=== PATIENT | female | born 1985 | race Two or more races ===

== ENCOUNTER 2023-09-27 09:42 | Outpatient (CLI) | payer OTHER | END 2023-09-27 09:43 | disposition home or self-care (01) | LOC: PRENATAL 09:42 | PROVIDERS: ATTEND Obstetrics & Gynecology Maternal & Fetal Medicine | DX: O36.80X0 Pregnancy with inconclusive fetal viability, not applicable or unspecified (principal); Z36.82 Encounter for antenatal screening for nuchal translucency; Z36.9 Encounter for antenatal screening, unspecified; O09.519 Supervision of elderly primigravida, unspecified trimester; Z3A.11 11 weeks gestation of pregnancy ==

== ENCOUNTER 2023-10-12 10:35 | Outpatient (CLI) | payer OTHER | END 2023-10-12 10:36 | disposition home or self-care (01) | LOC: PRENATAL 10:35 | PROVIDERS: ATTEND Obstetrics & Gynecology Maternal & Fetal Medicine | DX: Z76.1 Encounter for health supervision and care of foundling (principal) ==

== ENCOUNTER 2024-02-27 10:50 | Outpatient (CLI) | payer OTHER | END 2024-02-27 10:51 | disposition home or self-care (01) | LOC: PRENATAL 10:50 | PROVIDERS: ATTEND Obstetrics & Gynecology Maternal & Fetal Medicine | DX: O26.843 Uterine size-date discrepancy, third trimester (principal); O36.8130 Decreased fetal movements, third trimester, not applicable or unspecified; O09.513 Supervision of elderly primigravida, third trimester; Z3A.33 33 weeks gestation of pregnancy ==

== ENCOUNTER 2024-04-03 11:41 | Inpatient (IN) | payer OTHER ==
[~2024-04-03] VITALS: Ht 162.6 cm; Wt 88.0 kg
[2024-04-03 12:38] LABS: HEMATOCRIT 39.8 % (36.0-45.00); HEMOGLOBIN 13.8 g/dL (12.0-15.00); MEAN CELL VOLUME 93.1 fL (80.00-100.00); MEAN CORPUSCULAR HEMOGLOBIN 32.4 pg (27.00-32.0); MEAN CORPUSCULAR HGB CONC 34.8 g/dl (32.0-36.0); PLATELET COUNT 216 K/uL (150-450); RED BLOOD COUNT 4.27 M/uL (4.00-6.00); RED CELL DISTRIBUTION WIDTH 14.5 % (11.5-14.5)
[2024-04-03 12:57] LABS: INR < 0.93; PARTIAL THROMBOPLASTIN TIME 25.1 SECONDS (22.0-34.0); PROTHROMBIN TIME 10.1 SECONDS (9.0-11.5)
[2024-04-03 13:19] LABS: ALBUMIN 2.9 gm/dL (3.4-5.0); BILIRUBIN TOTAL 0.34 mg/dL (0.3-1.2); CALCIUM 9.5 mg/dL (8.5-10.1); CREATININE SERUM 0.46 mg/dL (0.55-1.02); GFR 153.7; GLOBULINA 3.5 G/DL (2.4-3.5); POTASSIUM 3.81 mEq/L (3.5-5.1); TOTAL PROTEIN 6.4 gm/dL (6.4-8.2)
[2024-04-13] MEDS ORDERED: RINGERS SOLUTION,LACTATED 1,000 ML IV SCH (20:00)
[2024-04-13 21:00] VITALS: BP 133/67
[2024-04-13] MEDS ORDERED: PRENATAL TABLE1 EAC1 PO (21:41)
[2024-04-13] MEDS ORDERED: MISOPROSTOL 25 MCG/4 ML GEL.W.APPL VAG ONE (21:45)
[2024-04-13 23:14] VITALS: BP 120/72; O2SAT 99
[2024-04-14] VITALS (10 sets, daily range): BP systolic 97–130; BP diastolic 55–79; O2SAT 99
[2024-04-14] MEDS ORDERED: MISOPROSTOL 25 MCG TABLET VAG NR (07:30)
[2024-04-14] MEDS ORDERED: MEPERIDINE HCL/PF 50 MG/ML VIAL IV ONE (09:15)
[2024-04-14] MEDS ORDERED: PROMETHAZINE HCL 50 MG/ML AMPUL IV ONE (09:15)
[2024-04-14] MEDS ORDERED: OXYTOCIN 20 UNITS/500ML RL PIGGYBAG IV SCH (11:45)
[2024-04-14] MEDS ORDERED: DOCUSATE SODIUM 100MG CAP PO SCH (20:35)
[2024-04-14] MEDS ORDERED: CHLORHEXIDINE GLUCONATE 120 ML BOTTLE TOP SCH (20:45)
[2024-04-14] MEDS ORDERED: OXYTOCIN 1,000 ML IV SCH (20:45)
[2024-04-14] MEDS ORDERED: LIDOCAINE HCL 1% 10ML VIAL PERCUT ONE (21:30)
[2024-04-14] MEDS ORDERED: ERYTHROMYCIN BASE OPHT 1GM EACH TUBE OP ONE (21:30)
[2024-04-15] VITALS: BP 108/73
[2024-04-15 05:16] VITALS: BP 108/72
[2024-04-15 08:00] VITALS: BP 96/61
[2024-04-15] MEDS ORDERED: IBUprofen 800 MG TABLET PO PRN (09:00)
[2024-04-15 15:38] LABS: HEMATOCRIT 29.1 % (36.0-45.00); HEMOGLOBIN 10.1 g/dL (12.0-15.00); MEAN CELL VOLUME 93.1 fL (80.00-100.00); MEAN CORPUSCULAR HEMOGLOBIN 32.4 pg (27.00-32.0); MEAN CORPUSCULAR HGB CONC 34.8 g/dl (32.0-36.0); PLATELET COUNT 185 K/uL (150-450); RED BLOOD COUNT 3.13 M/uL (4.00-6.00); RED CELL DISTRIBUTION WIDTH 14.5 % (11.5-14.5)
[2024-04-15 16:00] VITALS: BP 106/72
[2024-04-16 02:04] VITALS: BP 111/70
[2024-04-16 08:09] VITALS: BP 116/77
[2024-04-16 16:37] VITALS: BP 124/80
== END 2024-04-16 17:22 | disposition home or self-care (01) | DRG 807 ==
LOC: LDR 04-12 11:41 → OB/GYN 04-13 20:55 → LDR 04-13 21:47 → OB/GYN 04-14 22:16
PROVIDERS: ADMIT Obstetrics & Gynecology; ATTEND Obstetrics & Gynecology
PROC: 3E0P7VZ Introduction of Hormone into Female Reproductive, Via Natural or Artificial Opening (ICD-10-PCS; 2024-04-13)
PROC: 4A1HXCZ Monitoring of Products of Conception, Cardiac Rate, External Approach (ICD-10-PCS; 2024-04-13)
PROC: 10E0XZZ Delivery of Products of Conception, External Approach (ICD-10-PCS; principal; 2024-04-14)
PROC: 0KQM0ZZ Repair Perineum Muscle, Open Approach (ICD-10-PCS; 2024-04-14)
PROC: 0UQG7ZZ Repair Vagina, Via Natural or Artificial Opening (ICD-10-PCS; 2024-04-14)
PROC: 3E033VJ Introduction of Other Hormone into Peripheral Vein, Percutaneous Approach (ICD-10-PCS; 2024-04-14)
DX: O70.1 Second degree perineal laceration during delivery (principal); Z37.0 Single live birth; Z3A.38 38 weeks gestation of pregnancy; Z20.822 Contact with and (suspected) exposure to COVID-19